=== PATIENT | male | born 1990 ===

== ENCOUNTER 2018-06-08 12:12 | Emergency (ER) | payer BC ==
[2018-06-08 12:31] VITALS: BP 117/78
[2018-06-08] MEDS ORDERED: HYDROcodone/ACETAMIN 5-325 MG* 1 TAB PO ONE (12:50)
--- NOTE | 2018-06-08 13:03 | UC ---
Back Pain HPI - HPI Summary HPI Summary: Patient presents with an unremarkable past medical history. He presents today with complaints of right sided non-traumatic back pain. He states his pain began about 2 days ago, he had one day of improvement, and then his back pain got worse again. He states his back pain is worse with movement and improves at rest. He states his back pain wakes him when he rolls over. He denies any incontinence of bowel bladder, saddle anesthesia, recent procedures, immunosuppression, IV drug use, or DM. He states the pain does not radiate into buttock or legs. - History of Current Complaint Chief Complaint: UCBackPain Stated Complaint: BACK PAIN Time Seen by Provider: 06/08/18 12:42 Hx Obtained From: Patient Onset/Duration: Gradual Onset, Lasting Days Timing: Constant, Lasting Days Severity Initially: Moderate Severity Currently: Moderate Pain Intensity: 4 Back Pain: Is Discrete @ Character: Sharp, Aching, Spasmodic, Stiffness Aggravating Factor(s): Movement, Lifting, Bending, Cough Alleviating Factor(s): Rest, Heat, Cold, OTC Meds - Risk Factors AAA Risk Factors: Negative TAD Risk Factors: Negative Cauda Equina Risk Factors: Negative Epidural Abscess Risk Factors: Negative - Allergies/Home Medications Allergies/Adverse Reactions: Allergies Allergy/AdvReac Type Severity Reaction Status Date / Time No Known Allergies Allergy Verified 06/08/18 12:31 Home Medications: Home Medications Acetaminophen [Acetaminophen Extra Strength] 1,000 mg PO 06/08/18 [History] Aspirin/Caffeine [[place] Back & Body Pain Ex] 2 tab PO 06/08/18 [History] PMH/Surg Hx/FS Hx/Imm Hx Previously Healthy: Yes - Surgical History Surgical History: None - Family History Known Family History: Negative: Cardiac Disease, Hypertension, Diabetes - Social History Occupation: Employed Full-time Lives: With Family Alcohol Use: Weekly Substance Use Type: None Smoking Status (MU): Light Every Day Tobacco Smoker Type: Cigarettes Review of Systems Constitutional: Negative Skin: Negative Eyes: Negative ENT: Negative Respiratory: Negative Cardiovascular: Negative Gastrointestinal: Negative Genitourinary: Negative Motor: Negative Neurovascular: Negative Musculoskeletal: Myalgia Neurological: Negative Psychological: Negative Is Patient Immunocompromised?: No All Other Systems Reviewed And Are Negative: Yes Physical Exam Triage Information Reviewed: Yes Appearance: Pain Distress Vital Signs: Initial Vital Signs Temp 98.1 F 06/08/18 12:28 Pulse 72 06/08/18 12:28 Resp 18 06/08/18 12:28 BP 117/78 06/08/18 12:28 Pulse Ox 100 06/08/18 12:28 Vital Signs Reviewed: Yes Eye Exam: Normal Neck exam: Normal Respiratory Exam: Normal Respiratory: Positive: Lungs clear - Back inspection;vertrbra in good alignement without step-offs or deformities. No areas on eccymosis, erthema or edema. Palpation; vertebra and paraspinal processes nontender on palation. Reported pain of the left lateral thoracic and lumbar musculature. ROM; full flexion of toes, ankles, knee. Could cross legs. Pain with b/l staight leg raise at 45 degree of leg lift. Equal strength testing 4/5. Patellar reflexes 2 + equal. Gait heel-toe. Sensory exam no dificits to touch distally., Normal breath sounds, No respiratory distress Cardiovascular Exam: Normal Cardiovascular: Positive: RRR, No Murmur Back Pain Course/Dx - Course Course Of Treatment: Patient presents with nontraumatic acute lumbar sprain, with no evidence of cauda equina sydrome or any neuologic-compromise. He was given one norco 5/325mg in the clinic. He will be discharge home on Medrol dose pack, Flexeril 10 mg tid as needed, and given a very conservative number of norco tablets (for the acute pain response) 5/325mg one tablet every eight hours as needed for pain #6. I discussed all of his medications, when and how to take them, I told him he cannot drink any alcohol, drive or operate any equipement while taking [place]. I have taken him out of work for two days to begin to rest and recover, reviewed low back stretching exercise, and recommend he attempt to continue with his normal activies at home, with limitations of heavy lifting, or excessive bending. If his symtpoms do not imrove as anticiated or for any reason worsen, change he would need to be re-evaluated immediately. He verbalized understanding of and in agreement with the discharge plan. - Differential Dx/Diagnosis Differential Diagnosis/HQI/PQRI: Strain, Sprain, Other - acute lumbar sprain Provider Diagnoses: acute lumbar sprain. back pain Discharge - Sign-Out/Discharge Documenting (check all that apply): Patient Departure All imaging exams completed and their final reports reviewed: No Studies - Discharge Plan Condition: Stable Disposition: HOME Prescriptions: Cyclobenzaprine TAB* [Flexeril 10 MG TAB*] 10 mg PO TID PRN #15 tab PRN Reason: back pain HYDROcodone/ACETAMIN 5-325 MG* [[place] 5-325 TAB*] 1 tab PO Q8H PRN #6 tab MDD 3 PRN Reason: back pain methylPREDNISolone [Medrol] 4 mg PO .SEE [employer]CTION #1 [id number] Patient Education Materials: Low Back Strain (ED), Lower Back Exercises (ED) Forms: *Work Release Referrals: No Primary Care Phys,NOPCP [Primary Care Provider] - Additional Instructions: If your symptoms persist more that 5 days, or get worse come back for re- evaluation. - Billing Disposition and Condition Condition: STABLE Disposition: Home
== END 2018-06-08 13:00 | disposition home or self-care (01) ==
LOC: UCEAST 12:12
DX: S33.5XXA Sprain of ligaments of lumbar spine, initial encounter (principal); X58.XXXA Exposure to other specified factors, initial encounter; Y93.9 Activity, unspecified; Y92.9 Unspecified place or not applicable; F17.210 Nicotine dependence, cigarettes, uncomplicated
CPT/HCPCS: 99212; G0463